=== PATIENT | female | born 1975 | race Caucasian/White ===

== ENCOUNTER 2022-06-22 19:34 | Emergency (ER) | payer OTHER ==
[~2022-06-22] VITALS: Ht 157.5 cm; Wt 58.6 kg
[2022-06-22] MEDS ORDERED: IBUPROFEN 600 MG TAB PO STA (19:53)
[2022-06-22] MEDS ORDERED: AZITHROMYCIN250 MG PO ×2 (19:58→20:02)
[2022-06-22] MEDS ORDERED: IBUPROFEN600 MG PO ×2 (19:58→20:02)
[2022-06-22] MEDS ORDERED: PREDNISONE50 MG PO ×2 (19:58→20:02)
[2022-06-22] MEDS ORDERED: DIPHENHYDRAMINE HCL 25 MG CAP PO ONE (20:00)
[2022-06-22] MEDS ORDERED: BENADRYL25 M1 PO (20:01)
[2022-06-22] MEDS ORDERED: IBUPROFEN 600 MG TAB ONE (20:09)
[2022-06-22] MEDS ORDERED: DIPHENHYDRAMINE HCL 25 MG CAP ONE (20:17)
== END 2022-06-22 20:12 | disposition home or self-care (01) ==
LOC: FSED 19:57
DX: R50.9 Fever, unspecified (principal); J02.9 Acute pharyngitis, unspecified; R05.9 Cough, unspecified
CPT/HCPCS: 83518; 87400; 99283